=== PATIENT | female | born 1980 | race Caucasian/White ===

== ENCOUNTER 2020-08-02 00:11 | Inpatient (IN) | payer BC ==
[~2020-08-02] VITALS: Ht 172.7 cm; Wt 106.6 kg
--- NOTE | ~2020-08-02 | OR ---
[facility] [address] [place], [place] [address] Draft DATE OF OPERATION: 08/03/2020 SURGEON: Margaret Curtis DO PREOPERATIVE DIAGNOSES: 1. Intrauterine at 39 weeks and 5 days' gestation. 2. Non-reassuring heart tracing. 3. Failure to descend. 4. GBS positive. POSTOPERATIVE DIAGNOSES: 1. Intrauterine at 39 weeks and 5 days' gestation. 2. Non-reassuring heart tracing. 3. Failure to descend. 4. GBS positive. 5. Nuchal cord x2. PROCEDURES PERFORMED: Primary low transverse delivery. ANESTHESIA: Epidural. PROCESS MAINTENANCE TECHNICIAN: Francheska Brown DO ESTIMATED BLOOD LOSS: 800 mL. COMPLICATIONS: None. FINDINGS: Delivery of viable male , 7 pounds 7 ounces with Apgars of 8 and 9 in the NAVDEEP position with nuchal x2, tight. Normal uterus, tubes, and ovaries. The umbilical cord was also notable for minimal Jenkinjones jelly. INDICATIONS: Ms. Saucedo is a pleasant 40-year-old G1, P0, with intrauterine at 39 weeks and 5 days' gestation, who presented to Labor and Delivery for elective induction of PATIENT NAME: AMARILIS SAUCEDO OPERATIVE REPORT DATE OF : 80 REPORT #: [id number] PHYSICIAN: MARGARET CURTIS DO PCP: AB HAN MD REPORT IS CONFIDENTIAL AND NOT TO BE RELEASED WITHOUT AUTHORIZATION [facility] [address] [place], [place] [address] Draft labor. complicated by GBS positive status and advanced maternal age. She was ripened with Cytotec and artificial rupture of membranes was performed with GBS prophylaxis per protocol. IUPC and FSE were placed and the patient developed regular painful contractions and made adequate cervical change. The patient progressed to complete with some variable decelerations noted throughout labor. With pushing, these variable decelerations became more concerning. After approximately 1-1/2 hours of pushing, variable decelerations combined with minimal variability and tachycardia with minimal descent prompted recommendation for proceeding with primary low transverse delivery. Risks, benefits, and alternatives were discussed in detail with the patient. The patient understands and wishes to proceed with the procedure. TECHNIQUE: The patient was taken to the operating room. A time-out was performed to confirm correct patient and correct procedure. Epidural anesthetic had been previously placed by Anesthesia, was bolused and found to be adequate. The patient was prepped and draped in the supine position with a bump under the right hip and a Machuca catheter was inserted. The patient received Ancef 2 g preoperatively as well as azithromycin 500 mg. No heparin was indicated. ICPs were on and running. Once epidural was found to be adequate, a Pfannenstiel skin incision was made 2 cm above the pubic symphysis and carried down to the fascia. The fascia was nicked in the midline and fascial incision was extended bilaterally using Mari scissors. The fascia was grasped with Delilah's, elevated, and the underlying rectus divided sharply and bluntly. The rectus muscles were then divided in the midline and the peritoneum was entered sharply. Peritoneal incision was extended cephalad and caudad using blunt dissection. An Blaine self-retractor was placed and survey of the abdomen and pelvis was performed. Low station was appreciated. Hysterotomy was performed using a surgical scalpel and the hysterotomy was extended bilaterally using blunt dissection. The surgeon's hand was placed into the uterine cavity and the head easily flexed and delivered into the abdomen. Nuchal cord x2 tight was noted. The was then delivered easily with the assistance of fundal pressure and the nuchal cord was reduced. was vigorous and cried at delivery. Cord was doubly clamped and cut. The handed over to the awaiting pediatric team for further care. Cord gases were obtained and cord blood was obtained for routine analysis. The placenta was manually expressed intact with a centrally inserted 3-vessel cord. The umbilical cord was notable for minimal Jenkinjones jelly and the placenta was otherwise normal. The uterus was then cleared of any remaining products of conception or clot. Pitocin was given per protocol. Hysterotomy was then repaired using 0 Monocryl in a running locked manner. A 2nd imbricating suture of 0 Monocryl was applied with excellent imbrication noted. Small amount of oozing was noted from the left apex of the hysterotomy and this was made hemostatic with an O'Edgar stitch. The pelvis was irrigated and found to be hemostatic. The Blaine self-retractor was removed and ACell sheet was applied to the lower uterine segment. Tubes and ovaries PATIENT NAME: AMARILIS SAUCEDO OPERATIVE REPORT DATE OF : 80 REPORT #: [id number] PHYSICIAN: MARGARET CURTIS DO PCP: AB HAN MD REPORT IS CONFIDENTIAL AND NOT TO BE RELEASED WITHOUT AUTHORIZATION [facility] [address] [place], [place] [address] Draft had previously been noted to be normal. The peritoneum was then reapproximated using 2-0 Vicryl in a running nonlocked manner. The rectus was examined and found to be hemostatic with judicious use of Bovie electrocautery. Rectus was then reapproximated loosely using 0 Vicryl in three interrupted sutures. ACell powder was applied to the rectus sheath after it was irrigated and found to be hemostatic. The fascia was then reapproximated using 0 Vicryl in a running nonlocked manner. Subcu was examined and made hemostatic with judicious use of Bovie electrocautery. Subcu was repaired using 2-0 Vicryl in a running manner. Skin was then reapproximated using surgical mariano. The uterus was Crede'd for approximately 100 mL of blood. The patient was then taken to PACU in good and stable condition. Sponge, needle, and instrument counts were correct x2 at the end of the procedure. Dr. Brown was present and participated in all portions of the procedure. DO JUVE Shelby/NORMAN /[id number] Copies: ~ PATIENT NAME: AMARILIS SAUCEDO OPERATIVE REPORT DATE OF : 80 REPORT #: [id number] PHYSICIAN: MARGARET CURTIS DO PCP: AB HAN MD REPORT IS CONFIDENTIAL AND NOT TO BE RELEASED WITHOUT AUTHORIZATION
[~2020-08-02 00:11] MED LIST: MOTRIN IB200 MG PO; NORCO 5-325 TA1 EACH PO; SINGULAIR10 MG PO; SYNTHROID75 MCG PO
--- NOTE | 2020-08-02 00:38 | NUR ---
SWABBED BOTH NARES FOR RAPID COVID TEST
--- NOTE | 2020-08-02 11:32 | PR ---
[facility] [address] [place], [place] [address] Signed Progress Notes IP Datetime Report Generated by CPN: 08/02/2020 11:32 PROGRESS NOTES: [id number] Impression: Normal Progression of Labor; Reassuring Heart Rate Procedures: Sterile Vag Exam Plan: Continue Present Management Informed Consent Obtain: Induction of Labor VITAL SIGNS: [id number] EXAM: [id number] Dilatation: 1.0 Effacement: 50 Station: -3 Contractions: Irritability. Pt denies any discomfort or pain w/ ctxs MEMBRANES: [id number] Comments: Pt seen and examined. More uncomfortable w/ contractions. Cx now . Will recheck in _2 hrs and determine if AROM, cytotec, expectant management, or Cook cath. Pt understands and agrees. FETUS A: [id number] FHR Baseline: 120 Variability: Moderate 6-25bpm Accelerations: 15X15 Decelerations: None FHR Category: Category I Comments on Fetus A: No evidence of metabolic acidosis FETUS B: [id number] Signing Physician: Margaret Curtis DO Copies: ~ *Electronically Signed* 08/02/20 4403 MARGARET CURTIS DO PATIENT NAME: AMARILIS WILLINGHAM PROGRESS NOTE DATE OF : 80 PHYSICIAN: MARGARET CURTIS DO RPT #: [id number] REPORT IS CONFIDENTIAL AND NOT TO BE RELEASED WITHOUT AUTHORIZATION
--- NOTE | 2020-08-02 16:34 | PR ---
[facility] [address] [place], [place] [address] Signed Progress Notes IP Datetime Report Generated by CPN: 08/02/2020 16:34 PROGRESS NOTES: [id number] Impression: Normal Progression of Labor; Reassuring Heart Rate Procedures: Artificial ROM Plan: Continue Present Management Informed Consent Obtain: Vaginal Delivery VITAL SIGNS: [id number] EXAM: [id number] Dilatation: 1.5 Effacement: 50 Station: -3 Contractions: Irritability. Pt denies any discomfort or pain w/ ctxs MEMBRANES: [id number] Comments: Pt seen and examined. Slow change w/ cytotec induction and now angelita too frequently for additional prostaglandin. Discussed expectant management, AROM, or Cook cath and recommended AROM. Pt understands and agrees. Discussed anticipated course of labor. Epidural on demand. Continue PCN per protocol FETUS A: [id number] FHR Baseline: 120 Variability: Moderate 6-25bpm Accelerations: 15X15 Decelerations: None FHR Category: Category I Comments on Fetus A: No evidence of metabolic acidosis FETUS B: [id number] Signing Physician: Margaret Curtis DO Copies: ~ *Electronically Signed* 08/02/20 9511 MARGARET CURTIS DO PATIENT NAME: AMARILIS WILLINGHAM PROGRESS NOTE DATE OF : 80 PHYSICIAN: MARGARET CURTIS DO RPT #: [id number] REPORT IS CONFIDENTIAL AND NOT TO BE RELEASED WITHOUT AUTHORIZATION
--- NOTE | 2020-08-02 19:57 | PR ---
[facility] [address] [place], [place] [address] Signed Progress Notes IP Datetime Report Generated by FIDELIA: 08/02/2020 19:57 PROGRESS NOTES: [id number] Impression: Normal Progression of Labor; Reassuring Heart Rate Procedures: Intrauterine Pressure Catheter; Scalp Electrode; Sterile Vag Exam Plan: Continue Present Management Informed Consent Obtain: Vaginal Delivery VITAL SIGNS: [id number] EXAM: [id number] Dilatation: 1.5 Effacement: 75 Station: -3 Contractions: Irritability. Pt denies any discomfort or pain w/ ctxs MEMBRANES: [id number] Comments: Pt seen and examined. Comfortable w/ epidural. Some lightheadedness and mild shortness of breath w/ epidural that has resolved. Pt sitting up laughing and joking. Recommended IUPC and FSE to better evaluate progression of labor. IUPC and FSE placed w/out difficulty. Will monitor closely. Discussed anticipated course of labor and will proceed w/ expectant management. FETUS A: [id number] FHR Baseline: 120 Variability: Moderate 6-25bpm Accelerations: 15X15 Decelerations: None FHR Category: Category I Comments on Fetus A: No evidence of metabolic acidosis FETUS B: [id number] Signing Physician: Margaret Curtis DO Copies: ~ *Electronically Signed* 08/02/201956 MARGARET CURTIS DO PATIENT NAME: AMARILIS WILLINHGAM KEVIN PROGRESS NOTE DATE OF : 80 PHYSICIAN: MARGARET CURTIS DO RPT #: [id number] REPORT IS CONFIDENTIAL AND NOT TO BE RELEASED WITHOUT AUTHORIZATION
--- NOTE | 2020-08-02 23:27 | PR ---
[facility] [address] [place], [place] [address] Signed Progress Notes IP Datetime Report Generated by CPN: 08/02/2020 23:27 PROGRESS NOTES: [id number] Impression: Normal Progression of Labor; Reassuring Heart Rate Procedures: Sterile Vag Exam Plan: Continue Present Management Informed Consent Obtain: Vaginal Delivery VITAL SIGNS: [id number] EXAM: [id number] Dilatation: 4.0 Effacement: 95 Station: -3 Contractions: Irritability. Pt denies any discomfort or pain w/ ctxs MEMBRANES: [id number] Comments: evaluation: Variable and few late decelerations but resolved. Moderate variability and accelerations throughtout. Pt seen and examined. Doing well. Comfortable w/ contractions. Overall status reassuring and now Cat 1 w/ accelerations. Reviewed contractions and status as well as cervical change. Will continue expectant management. Continue maternal position changes to encourage descent. Reviewed indications for if needed. All questions answered and pt understands and agrees with plan of care. FETUS A: [id number] FHR Baseline: 120 Variability: Moderate 6-25bpm Accelerations: 15X15 Decelerations: None FHR Category: Category I Comments on Fetus A: No evidence of metabolic acidosis FETUS B: [id number] Signing Physician: Margaret Curtis DO Copies: ~ *Electronically Signed* 08/02/20 3784 MARGARET CURTIS DO PATIENT NAME: AMARILIS WILLINGHAM KEVIN PROGRESS NOTE DATE OF : 80 PHYSICIAN: MARGARET CURTIS DO RPT #: [id number] REPORT IS CONFIDENTIAL AND NOT TO BE RELEASED WITHOUT AUTHORIZATION
--- NOTE | 2020-08-03 01:09 | PR ---
[facility] [address] [place], [place] [address] Signed Progress Notes IP Datetime Report Generated by CPN: 08/03/2020 01:09 PROGRESS NOTES: [id number] Impression: Normal Progression of Labor; Reassuring Heart Rate Procedures: Sterile Vag Exam Plan: Continue Present Management; Anticipate Vaginal Delivery Informed Consent Obtain: Vaginal Delivery VITAL SIGNS: [id number] EXAM: [id number] Dilatation: 9.0 Effacement: 95 Station: -3 Contractions: Irritability. Pt denies any discomfort or pain w/ ctxs MEMBRANES: [id number] Comments: Pt seen and examined. More comfortable after epidural rebolused by anesthesia. Cx now 9cm. Overall reassuring FHT w/ moderate variability, accelerations, but variable decelerations noted. Will continue to monitor closely. Discussed anticipated course of labor. All questions answered FETUS A: [id number] FHR Baseline: 120 Variability: Moderate 6-25bpm Accelerations: 15X15 Decelerations: None FHR Category: Category I Comments on Fetus A: No evidence of metabolic acidosis FETUS B: [id number] Signing Physician: Margaret Curtis DO Copies: ~ *Electronically Signed* 08/03/20 0109 MARGARET CURTIS DO PATIENT NAME: AMARILIS WILLINGHAM PROGRESS NOTE DATE OF : 80 PHYSICIAN: MARGARET CURTIS DO RPT #: [id number] REPORT IS CONFIDENTIAL AND NOT TO BE RELEASED WITHOUT AUTHORIZATION
--- NOTE | 2020-08-03 02:23 | PR ---
[facility] [address] [place], [place] [address] Signed Progress Notes IP Datetime Report Generated by CPN: 08/03/2020 02:22 PROGRESS NOTES: [id number] Impression: Normal Progression of Labor; Reassuring Heart Rate Procedures: Sterile Vag Exam Plan: Anticipate Vaginal Delivery Informed Consent Obtain: Vaginal Delivery VITAL SIGNS: [id number] EXAM: [id number] Dilatation: 10.0 Effacement: 100 Station: -1 Contractions: Irritability. Pt denies any discomfort or pain w/ ctxs MEMBRANES: [id number] Comments: Pt seen and examined. Pushing well w/ contractions. Variable decelerations noted w/ contractions, w/ continued moderate variability. Slow progress made. Will continue to monitor descent and FHT closely. Anticipate but reviewed indications for . FETUS A: [id number] FHR Baseline: 120 Variability: Moderate 6-25bpm Accelerations: 15X15 Decelerations: None FHR Category: Category I Comments on Fetus A: No evidence of metabolic acidosis FETUS B: [id number] Signing Physician: Margaret Curtis DO Copies: ~ *Electronically Signed* 08/03/20 022 MARGARET CURTIS DO PATIENT NAME: AMARILIS WILLINGHAM PROGRESS NOTE DATE OF : 80 PHYSICIAN: MARGARET CURTIS DO RPT #: [id number] REPORT IS CONFIDENTIAL AND NOT TO BE RELEASED WITHOUT AUTHORIZATION
--- NOTE | 2020-08-03 03:13 | PR ---
[facility] [address] [place], [place] [address] Signed Progress Notes IP Datetime Report Generated by FIDELIA: 08/03/2020 03:13 PROGRESS NOTES: [id number] Impression: Arrest of Dilatation/Descent; Non-reassuring Heart Rate Procedures: Sterile Vag Exam Plan: Tocolysis; Deliver- Section Informed Consent Obtain: Section Delivery VITAL SIGNS: [id number] EXAM: [id number] Dilatation: 10.0 Effacement: 100 Station: -1 Contractions: Irritability. Pt denies any discomfort or pain w/ ctxs MEMBRANES: [id number] Comments: Pt w/ good pushing effort, slow descent, and intolerance of labor w/ continued variable decelerations. Multiple position changes and intrauterine rescussitation attempted. Terbutaline ordered. OR crew and Dr. Brown notified and en route. Consents signed. Ancef 2 g IV. Will move to OR. FETUS A: [id number] FHR Baseline: 120 Variability: Moderate 6-25bpm Accelerations: 15X15 Decelerations: None FHR Category: Category I Comments on Fetus A: No evidence of metabolic acidosis FETUS B: [id number] Signing Physician: Margaret Curtis DO Copies: ~ *Electronically Signed* 08/03/20 0313 MARGARET CURTIS DO PATIENT NAME: AMARILIS WILLINGHAM PROGRESS NOTE DATE OF : 80 PHYSICIAN: MARGARET CURTIS DO RPT #: [id number] REPORT IS CONFIDENTIAL AND NOT TO BE RELEASED WITHOUT AUTHORIZATION
--- NOTE | 2020-08-03 04:33 | NUR ---
08/03/20 0433 Carolyne Guevara 0424 PATIENT ARRIVES TO ROOM 102 AWAKE BUT DROWSY. RESP EVEN AND UNLABORED. DENIES PAIN OR NAUSEA. 0430 MOM BREAST FEEDING BABY TO RIGHT BREAST WITH FBC RN AT BEDSIDE.
--- NOTE | 2020-08-04 10:36 | PR ---
[facility] [address] [place], [place] [address] Signed PP Progress Notes Datetime Report Generated by CPN: 08/04/2020 10:36 SUBJECTIVE: [id number] Pain: Within Normal Limits Nausea/Vomiting: Denies Flatus: Yes Bowel Movement: No Vital Signs: [id number] Vital Signs: Reviewed; Within Normal Limits EXAM: Ongoing Cardiovascular: Normal Respiratory: Normal Abdomen/Uterus: Normal Lochia: Normal Vulva/Perineum: Not Done Breasts: Not Done CVA Tenderness: Normal Extremities: Normal Incision: Normal Progress: Normal Exam Comments: Fundus firm U-2 nontender IMPRESSION/PLAN/PROCEDURES: [id number] Impression: Normal Progression Plan: Continue Present Management Progress Notes: Pt seen and examined. Doing well. Ambulating, voiding, and tolerating full diet. Pain and lochia minimal. well. No lightheadedness or dizziness. No complaints. Anticipate d/c home tomorrow. Hgb 8.6 Signing Physician: Margaret Curtis DO Copies: ~ *Electronically Signed* 08/04/20 1036 MARGARET CURTIS DO PATIENT NAME: AMARILIS WILLINGHAM PROGRESS NOTE DATE OF : 80 PHYSICIAN: MARGARET CURTIS DO RPT #: [id number] REPORT IS CONFIDENTIAL AND NOT TO BE RELEASED WITHOUT AUTHORIZATION
--- NOTE | 2020-08-04 10:37 | PR ---
[facility] [address] [facility] [place], [place] [address] Signed PP Progress Notes Datetime Report Generated by CPN: 08/04/2020 10:37 SUBJECTIVE: [id number] Pain: Within Normal Limits Nausea/Vomiting: Denies Flatus: Yes Bowel Movement: No Vital Signs: [id number] Vital Signs: Reviewed; Within Normal Limits EXAM: Ongoing Cardiovascular: Normal Respiratory: Normal Abdomen/Uterus: Normal Lochia: Normal Vulva/Perineum: Not Done Breasts: Not Done CVA Tenderness: Normal Extremities: Normal Incision: Normal Progress: Normal Exam Comments: Fundus firm U-2 nontender IMPRESSION/PLAN/PROCEDURES: [id number] Impression: Normal Progression Plan: Continue Present Management Progress Notes: Pt seen and examined. Doing well. Ambulating, voiding, and tolerating full diet. Pain and lochia minimal. well. No lightheadedness or dizziness. No complaints. Anticipate d/c home tomorrow. Hgb 8.6 Signing Physician: Margaret Curtis DO Copies: ~ *Electronically Signed* 08/04/20 1037 MARGARET CURTIS DO PATIENT NAME: AMARILIS WILLINGHAM PROGRESS NOTE DATE OF : 80 PHYSICIAN: MARGARET CURTIS DO RPT #: [id number] REPORT IS CONFIDENTIAL AND NOT TO BE RELEASED WITHOUT AUTHORIZATION
--- NOTE | 2020-08-05 08:47 | PR ---
[facility] [address] [place], [place] [address] Signed PP Progress Notes Datetime Report Generated by CPN: 08/05/2020 08:47 SUBJECTIVE: [id number] Pain: Within Normal Limits Nausea/Vomiting: Denies Flatus: Yes Bowel Movement: No Vital Signs: [id number] Vital Signs: Reviewed; Within Normal Limits EXAM: Ongoing Cardiovascular: Normal Respiratory: Normal Abdomen/Uterus: Normal Lochia: Normal Vulva/Perineum: Not Done Breasts: Not Done CVA Tenderness: Normal Extremities: Normal Incision: Not Applicable Progress: Normal Exam Comments: Fundus firm U-2 nontender. Incision healing well IMPRESSION/PLAN/PROCEDURES: [id number] Impression: Normal Progression Plan: Remove Scandia; Discharge Progress Notes: Pt seen and examined. Doing well. Ambulating, voiding, and tolerating full diet. Pain and lochia minimal. well. No fevers/chills. No lightheadedness/dizziness. Will d/c home with ibuprofen, norco, and ferrous sulfate. Planning natural family planning. No other questions or concerns. Reviewed discharge instructions in detail. Signing Physician: Margaret Curtis DO Copies: ~ *Electronically Signed* 08/05/20 0800 MARGARET CURTIS DO PATIENT NAME: AMARILIS WILLINGHAM PROGRESS NOTE DATE OF : 80 PHYSICIAN: MARGARET CURTIS #: [id number] REPORT IS CONFIDENTIAL AND NOT TO BE RELEASED WITHOUT AUTHORIZATION
== END 2020-08-05 10:45 | disposition home or self-care (01) | DRG 787 ==
LOC: FBC 00:11
PROVIDERS: ADMIT Obstetrics & Gynecology; ATTEND Obstetrics & Gynecology
PROC: 3E0P7VZ Introduction of Hormone into Female Reproductive, Via Natural or Artificial Opening (ICD-10-PCS; 2020-08-02)
PROC: 10907ZC Drainage of Amniotic Fluid, Therapeutic from Products of Conception, Via Natural or Artificial Opening (ICD-10-PCS; 2020-08-02)
PROC: 10H07YZ Insertion of Other Device into Products of Conception, Via Natural or Artificial Opening (ICD-10-PCS; 2020-08-02)
PROC: 00HU33Z Insertion of Infusion Device into Spinal Canal, Percutaneous Approach (ICD-10-PCS; 2020-08-02)
PROC: 3E0R3BZ Introduction of Anesthetic Agent into Spinal Canal, Percutaneous Approach (ICD-10-PCS; 2020-08-02)
PROC: 10D00Z1 Extraction of Products of Conception, Low, Open Approach (ICD-10-PCS; principal; 2020-08-03 03:51)
PROC: 3E0234Z Introduction of Serum, Toxoid and Vaccine into Muscle, Percutaneous Approach (ICD-10-PCS; 2020-08-04)
DX: O32.4XX0 Maternal care for high head at term, not applicable or unspecified (principal); D62 Acute posthemorrhagic anemia; Z3A.39 39 weeks gestation of pregnancy; Z37.0 Single live birth; O76 Abnormality in fetal heart rate and rhythm complicating labor and delivery; O99.824 Streptococcus B carrier state complicating childbirth; O99.284 Endocrine, nutritional and metabolic diseases complicating childbirth; E03.9 Hypothyroidism, unspecified; Z20.822 Contact with and (suspected) exposure to COVID-19; O26.893 Other specified pregnancy related conditions, third trimester; O69.81X0 Labor and delivery complicated by cord around neck, without compression, not applicable or unspecified; O90.81 Anemia of the puerperium; O77.0 Labor and delivery complicated by meconium in amniotic fluid; O34.43 Maternal care for other abnormalities of cervix, third trimester; Z79.899 Other long term (current) drug therapy; Z67.21 Type B blood, Rh negative
CPT/HCPCS: 01960; 36415; 82803; 83030; 85027; 86850; 86870; 86900; 86901; C9803; J1650; J1885; J2001; J2274; J2405; J2540; J2590; J2790; J2795; J3010; J7121; U0003

== ENCOUNTER 2021-05-25 07:20 | Emergency (ER) | payer BC ==
[~2021-05-25] VITALS: Ht 172.7 cm; Wt 106.6 kg
== END 2021-05-25 07:57 | disposition home or self-care (01) ==
LOC: ED 07:20
DX: L30.9 Dermatitis, unspecified (principal); Z79.899 Other long term (current) drug therapy
CPT/HCPCS: 99282

== ENCOUNTER 2021-09-26 11:28 | Inpatient (IN) | payer BC ==
[~2021-09-26] VITALS: Ht 172.7 cm; Wt 118.8 kg
--- NOTE | ~2021-09-26 | OR ---
[facility] [address] [place], [place] [address] Draft DATE OF OPERATION: 10/03/2021 SURGEON: Margaret Curtis DO PREOPERATIVE DIAGNOSES: 1. Term . 2. History of prior . 3. Obesity in . 4. Rh negative. POSTOPERATIVE DIAGNOSES: 1. Term . 2. History of prior . 3. Obesity in . 4. Rh negative. PROCEDURE PERFORMED: Repeat low transverse delivery. ANESTHESIA: Spinal. EQUIPMENT WASHER: Trev Caputo MD ESTIMATED BLOOD LOSS: 700 mL. DRAINS: Machuca to gravity. COMPLICATIONS: None. FINDINGS: Delivered a viable female , 7 pounds 10 ounces with Apgars of 9 and 9 in the direct OP position. Nuchal cord x2 loose. Normal placenta, ovaries, and fallopian tubes. Significant varicosity of the lower uterine segment, otherwise normal-appearing uterus. PATIENT NAME: AMARILIS SAUCEDO OPERATIVE REPORT DATE OF : 80 REPORT #: [id number] PHYSICIAN: MARGARET CURTIS DO PCP: AB HAN MD REPORT IS CONFIDENTIAL AND NOT TO BE RELEASED WITHOUT AUTHORIZATION [facility] [address] [place], [place] [address] Draft INDICATIONS: Ms. Saucedo is a very pleasant 41-year-old G2, P1-0-0-1 with IUP at 39 and 0 weeks gestation, who presents for repeat low transverse delivery. Risks, benefits, and alternatives were discussed in detail with the patient. The patient understands and wished to proceed with the procedure. TECHNIQUE: The patient was taken to the operating room where time-out was performed to confirm correct patient and correct procedure. Spinal anesthesia was adequately established. The patient was prepped and draped in the supine position with a bump under her right hip. A Machuca catheter was inserted and the patient received Ancef 2 g preoperatively per SCIP protocol and no heparin was indicated. Once spinal anesthetic was noted to be adequate, a Pfannenstiel skin incision was made with a surgical scalpel, cutting through the prior Pfannenstiel scar. This was carried down to the fascia and the fascia was nicked in the midline. Fascial incision was extended bilaterally using curved Mari scissors. The fascia was grasped with Delilah's, elevated, and the underlying rectus muscle dissected bluntly and sharply. The rectus muscle was then divided in the midline using blunt and sharp dissection and the peritoneum was entered sharply. Peritoneal incision was extended cephalad caudad using blunt and sharp dissection. The lower uterine segment was identified and significant varicosities were noted. An Blaine self retractor was placed and hysterotomy was performed superior to the varicosities. Hysterotomy was extended bilaterally using blunt dissection and clear amniotic fluid was noted. The surgeon's hand was placed into the uterine cavity. The head elevated into the abdomen, delivered with the assistance of fundal pressure. Nuchal cord x2 loose was noted and reduced. The was delivered without difficulty and was vigorous and cried upon delivery. Cord was doubly clamped and cut and the handed to the waiting pediatric team for further care. Cord blood was obtained for routine analysis. The placenta was then manually expressed intact with a centrally inserted three-vessel cord. The uterine cavity was cleared of any remaining products of conception or clots. The uterus was then closed in two layers of O Monocryl, the 1st being a running locked layer and the 2nd being an imbricating layer in a vertical manner. Several areas of oozing were noted and these were made hemostatic with [id number] sutures with O Monocryl. The pelvis was irrigated and to be hemostatic. Normal tubes and ovaries were identified. The Blaine self retractor was removed and lower uterine segment again identified, and noted to be hemostatic. The peritoneum was then reapproximated using 2-0 Vicryl in a running nonlocked manner. Rectus was then made hemostatic with judicious use of Bovie electrocautery and was irrigated and again found to be hemostatic. Rectus was then plicated in the midline loosely using 0 Vicryl in interrupted sutures. The fascia was then reapproximated using 0 Vicryl in a running nonlocked manner. Subcu was irrigated and found to be hemostatic and was reapproximated using 3-0 Vicryl in a running nonlocked manner. Skin was reapproximated with surgical mariano. The uterus was Crede'd for scant amount of blood and the patient was taken to PATIENT NAME: AMARILIS SAUCEDO OPERATIVE REPORT DATE OF : 80 REPORT #: [id number] PHYSICIAN: MARGARET CURTIS DO PCP: AB HAN MD REPORT IS CONFIDENTIAL AND NOT TO BE RELEASED WITHOUT AUTHORIZATION [facility] [address] [place] [address] [place] [address] Draft PACU in good and stable condition. Sponge, needle, and instrument counts were correct x2 at the end of the procedure. Dr. Caputo was present and participated in all portions of the procedure. Margaret Curtis DO JDW/LOKESHL /[id number] Copies: ~ PATIENT NAME: AMARILIS SAUCEDO OPERATIVE REPORT DATE OF : 80 REPORT #: [id number] PHYSICIAN: MARGARET CURTIS DO PCP: AB HAN MD REPORT IS CONFIDENTIAL AND NOT TO BE RELEASED WITHOUT AUTHORIZATION
[2021-10-03] MEDS ORDERED: PRENATAL MULTI1 EAC5 PO (06:08)
[2021-10-03] MEDS ORDERED: IRON325 M1 PO (06:08)
--- NOTE | 2021-10-03 08:52 | NUR ---
10/03/21 0852 Sheets,Sophie 0831 PT ARRIVED TO [facility] ROOM WITH AND MOTHER AT BEDSIDE. VSS. PT DENIES PAIN AND NAUSEA. SPINAL LEVEL T-6 AND PT DENIES SOB. PT UNABLE TO MOVE LEGS AND SPINAL EDUCATION GIVEN. 0833 BABY TO CHEST WITH [facility] RN AT BEDSIDE, HOB INCREASED SLIGHTLY. 0850 PT RESTING IN BED WITH BABY ON CHEST. PT DENIES CONCERNS. VSS.
--- NOTE | 2021-10-04 12:50 | PR ---
[facility] [address] [facility] [place], [place] [address] Signed PP Progress Notes Datetime Report Generated by CPN: 10/04/2021 12:50 SUBJECTIVE: [id number] Pain: Within Normal Limits Nausea/Vomiting: Denies Flatus: Yes Bowel Movement: No Vital Signs: [id number] Vital Signs: Reviewed; Within Normal Limits EXAM: Ongoing Cardiovascular: Normal Respiratory: Normal Abdomen/Uterus: Normal Lochia: Normal Vulva/Perineum: Not Done CVA Tenderness: Normal Extremities: Normal Incision: Normal Progress: Normal Exam Comments: Fundus firm U-2 nontender incision healing well IMPRESSION/PLAN/PROCEDURES: [id number] Impression: Normal Progression Plan: Discharge Progress Notes: Pt seen and examined, doing well. Ambulating, voiding, and tolerating full diet. Pain and lochia minimal. well. No concerns. Desires d/c home today. Hgb 9.5. Reviewed discharge instructions in detail Signing Physician: Margaret Curtis DO Copies: ~ *Electronically Signed* 10/04/21 9238 MARGARET CURTIS DO PATIENT NAME: AMARILIS KEVIN PROGRESS NOTE DATE OF : 80 PHYSICIAN: MARGARET CURTIS DO RPT #: [id number] REPORT IS CONFIDENTIAL AND NOT TO BE RELEASED WITHOUT AUTHORIZATION
== END 2021-10-04 14:10 | disposition home or self-care (01) | DRG 787 ==
LOC: FBC 10-03 05:19
PROVIDERS: ADMIT Obstetrics & Gynecology; ATTEND Obstetrics & Gynecology
PROC: 10D00Z1 Extraction of Products of Conception, Low, Open Approach (ICD-10-PCS; principal; 2021-10-03 07:00)
PROC: 3E0334Z Introduction of Serum, Toxoid and Vaccine into Peripheral Vein, Percutaneous Approach (ICD-10-PCS; 2021-10-04)
DX: O34.211 Maternal care for low transverse scar from previous cesarean delivery (principal); D62 Acute posthemorrhagic anemia; Z3A.39 39 weeks gestation of pregnancy; Z37.0 Single live birth; O99.284 Endocrine, nutritional and metabolic diseases complicating childbirth; E03.8 Other specified hypothyroidism; O99.02 Anemia complicating childbirth; D64.9 Anemia, unspecified; O26.893 Other specified pregnancy related conditions, third trimester; Z67.21 Type B blood, Rh negative; O99.214 Obesity complicating childbirth; Z23 Encounter for immunization; O69.81X0 Labor and delivery complicated by cord around neck, without compression, not applicable or unspecified; Z79.899 Other long term (current) drug therapy
CPT/HCPCS: 36415; 83030; 85027; 86850; 86870; 86900; 86901; A9270; J0690; J1650; J1885; J2001; J2274; J2300; J2405; J2550; J2590; J2790; J7121

== ENCOUNTER 2023-11-20 09:08 | Emergency (ER) | payer BC ==
[~2023-11-20] VITALS: Ht 182.9 cm; Wt 87.7 kg
[~2023-11-20 09:08] MED LIST changes: +IRON325 M1 PO; +PRENATAL MULTI1 EAC5 PO
[2023-11-20] MEDS ORDERED: PHENTERMINE HCL30 MG PO (09:21)
[2023-11-20] MEDS ORDERED: IBUPROFEN 600 MG TAB PO ONE (10:15)
[2023-11-20] MEDS ORDERED: ACETAMINOPHEN 500 MG TAB PO ONE (10:15)
[2023-11-20] MEDS ORDERED: HYDROCODON-ACE1 EA11 PO (10:18)
[2023-11-20 10:47] VITALS: BP 125/76
== END 2023-11-20 10:45 | disposition home or self-care (01) ==
LOC: ED 09:08
DX: S62.305A Unspecified fracture of fourth metacarpal bone, left hand, initial encounter for closed fracture (principal); S62.307A Unspecified fracture of fifth metacarpal bone, left hand, initial encounter for closed fracture; W20.8XXA Other cause of strike by thrown, projected or falling object, initial encounter
CPT/HCPCS: 29125; 73110; 99283-25; A9270

== ENCOUNTER 2025-01-09 16:44 | Emergency (ER) | payer BC ==
[~2025-01-09] VITALS: Ht 182.9 cm; Wt 91.0 kg
[~2025-01-09 16:44] MED LIST changes: +HYDROCODON-ACE1 EA11 PO; +PHENTERMINE HCL30 MG PO
[2025-01-09] MEDS ORDERED: HYDROmorphone HCL 1 MG/ML SYR IV PRN ×2 (17:00→19:00)
[2025-01-09] MEDS ORDERED: SODIUM CHLORIDE 0.9% 1,000 ML IV ONE (17:00)
[2025-01-09 17:13] LABS: BASOPHILS 0.4 % (0.1-1.2); EOSINOPHILS 4.5 % (0.7-5.8); LYMPHOCYTES 23.6 % (19.3-51.7); MCH 30.1 PG (25.6-32.2); MCHC 35.2 g/dL (32.2-35.5); MCV 85.5 fL (79.4-94.8); MONOCYTES 6.4 % (4.7-12.5); NEUTROPHILS 64.8 % (34.0-71.1); RBC 4.22 M/uL (3.93-5.22)
[2025-01-09] MEDS ORDERED: ZEPBOUND5 MG/0.5 M SUB-Q (17:23)
[2025-01-09 17:29] LABS: ALT (SGPT) 17.0 U/L (14-59); AST (SGOT) 21.0 U/L (15-37); GLOMERULAR FILTRATION RATE,EST 57.0 mL/min (>60); PROTEIN, TOTAL 7.8 g/dL (6.4-8.2); UREA NITROGEN 12.0 mg/dL (7-18)
[2025-01-09 18:20] LABS: BLOOD/HGB, URINE NEGATIVE (Negative); KETONE, URINE NEGATIVE (Negative); LEUK ESTERASE, URINE NEGATIVE (negative); NITRITE, URINE NEGATIVE (negative)
[2025-01-09] MEDS ORDERED: ONDANSETRON ODT8 MG PO (18:57)
[2025-01-09] MEDS ORDERED: KETOROLAC TROMETHAMINE 30 MG/ML VIAL IV ONE (19:00)
[2025-01-09] MEDS ORDERED: HYDROCODONE BIT/ACETAMINOPHEN 5/325 MG 1 TAB HOME.PACK PO ONE (19:00)
[2025-01-09 19:22] VITALS: BP 125/88
== END 2025-01-09 19:47 | disposition home or self-care (01) ==
LOC: ED 16:44
PROVIDERS: Emergency Medicine
DX: K43.9 Ventral hernia without obstruction or gangrene (principal); Z79.899 Other long term (current) drug therapy; Z91.041 Radiographic dye allergy status
CPT/HCPCS: 36415; 74176; 80053; 81003; 83690; 84703; 85025; 96374; 96375; 99284-25; A9270; J1171; J1885; J2405; J7030

== ENCOUNTER 2025-01-15 23:21 | Emergency (ER) | payer BC ==
[~2025-01-15] VITALS: Ht 182.9 cm; Wt 91.0 kg
[~2025-01-15 23:21] MED LIST changes: +ONDANSETRON ODT8 MG PO; +ZEPBOUND5 MG/0.5 M SUB-Q
--- OUTSIDE RECORDS SUMMARY | 2025-01-15 23:28 | XMS ---
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 [place] VISIT COUNT (12 MO.) [address] TOTAL 3 NOTE: Visits indicate total known visits. 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
[2025-01-15 23:45] LABS: BASOPHILS 0.2 % (0.1-1.2); BLOOD/HGB, URINE NEGATIVE (Negative); EOSINOPHILS 2.9 % (0.7-5.8); KETONE, URINE NEGATIVE (Negative); LEUK ESTERASE, URINE NEGATIVE (negative); LYMPHOCYTES 13.3 % (19.3-51.7); MCH 30.1 PG (25.6-32.2); MCHC 34.6 g/dL (32.2-35.5); MCV 87.0 fL (79.4-94.8); MONOCYTES 6.8 % (4.7-12.5); NEUTROPHILS 76.5 % (34.0-71.1); NITRITE, URINE NEGATIVE (negative); RBC 4.15 M/uL (3.93-5.22)
[2025-01-16 00:02] LABS: ALT (SGPT) 18.0 U/L (14-59); AST (SGOT) 20.0 U/L (15-37); GLOMERULAR FILTRATION RATE,EST 85.0 mL/min (>60); PROTEIN, TOTAL 7.7 g/dL (6.4-8.2); UREA NITROGEN 13.0 mg/dL (7-18)
[2025-01-16] MEDS ORDERED: HYDROmorphone HCL 1 MG/ML SYR IV PRN (01:00)
[2025-01-16] MEDS ORDERED: HYDROCODON-ACE1 EA10 PO (01:58)
[2025-01-16 02:14] VITALS: BP 141/73
== END 2025-01-16 02:15 | disposition home or self-care (01) ==
LOC: ED 23:21
PROVIDERS: Emergency Medicine
DX: K43.9 Ventral hernia without obstruction or gangrene (principal); Z91.041 Radiographic dye allergy status; Z79.899 Other long term (current) drug therapy
CPT/HCPCS: 36415; 80053; 81003; 83690; 83735; 84703; 85025; 96374; 96375; 99284-25; J1171; J2405

== ENCOUNTER 2025-01-18 17:27 | Emergency (ER) | payer BC ==
[~2025-01-18] VITALS: Ht 182.9 cm; Wt 95.3 kg
[~2025-01-18 17:27] MED LIST changes: +HYDROCODON-ACE1 EA10 PO
--- OUTSIDE RECORDS SUMMARY | 2025-01-18 17:34 | XMS ---
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 [place] VISIT COUNT (12 MO.) [address] TOTAL 4 NOTE: Visits indicate total known visits. 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
[2025-01-18 18:28] LABS: BASOPHILS 0.1 % (0.1-1.2); EOSINOPHILS 3.1 % (0.7-5.8); LYMPHOCYTES 21.1 % (19.3-51.7); MCH 29.9 PG (25.6-32.2); MCHC 35.1 g/dL (32.2-35.5); MCV 85.2 fL (79.4-94.8); MONOCYTES 7.0 % (4.7-12.5); NEUTROPHILS 68.4 % (34.0-71.1); RBC 4.11 M/uL (3.93-5.22)
[2025-01-18 18:40] LABS: ALT (SGPT) 13 U/L (14-59); AST (SGOT) 14 U/L (15-37); GLOMERULAR FILTRATION RATE,EST 99 mL/min (>60); PROTEIN, TOTAL 7.4 g/dL (6.4-8.2); UREA NITROGEN 19 mg/dL (7-18)
[2025-01-18] MEDS ORDERED: METOPROLOL SUCCINATE 25 MG TABCR PO ONE (19:30)
[2025-01-18] MEDS ORDERED: METOPROLOL TART25 MG PO (19:33)
[2025-01-18 19:58] VITALS: BP 121/85
--- NOTE | 2025-01-19 18:26 | EKG ---
[facility] [address] [facility] [place] [address] Signed Normal sinus rhythm with sinus arrhythmia Normal ECG No previous ECGs available Confirmed by Win Tobin DO ([id number]) on 01/19/2025 6:26:12 PM Electronically Signed By: WIN TOBIN DO 01/19/25 182 PATIENT NAME: AMARILIS STAFFORD KEVIN Electrocardiogram DATE OF : 80 PHYSICIAN: WIN TOBIN DO REPORT #: [id number] REPORT IS CONFIDENTIAL AND NOT TO BE RELEASED WITHOUT AUTHORIZATION
== END 2025-01-18 19:58 | disposition home or self-care (01) ==
LOC: ED 17:27
PROVIDERS: Emergency Medicine
DX: R00.2 Palpitations (principal); R07.89 Other chest pain; R06.00 Dyspnea, unspecified; Z91.041 Radiographic dye allergy status; Z79.899 Other long term (current) drug therapy
CPT/HCPCS: 36415; 80053; 83735; 84443; 84484; 85025; 93005; 93010; 93242; 93244; 99285

== ENCOUNTER 2025-04-12 10:31 | Day surgery (SDC) | payer BC ==
[~2025-04-12] VITALS: Ht 172.7 cm; Wt 91.0 kg
[~2025-04-12 10:31] MED LIST changes: +CEFAZOLIN SODIUM 2 GM in SODIUM CHLORIDE 0.9% 100 ML IV SCH; +CEFAZOLIN SODIUM 2 GM/20 ML SYR IV SCH; +IBLOOD GLUCOSE TEST STRIP 1 EA TEST VI PRN; +LACTATED RINGER'S 1,000 ML IV SCH; +LEVOTHYROXINE25 MC1 PO; +LIDOCAINE HCL 1% 5 ML SDV INJ ONE; +METOPROLOL TART25 MG PO; +VENTOLIN HFA18 GM INH
[2025-04-12 11:16] VITALS: BP 130/75
[2025-04-12 11:23] LABS: BASOPHILS 0.3 % (0.1-1.2); EOSINOPHILS 6.1 % (0.7-5.8); LYMPHOCYTES 21.5 % (19.3-51.7); MCH 31.0 PG (25.6-32.2); MCHC 35.3 g/dL (32.2-35.5); MCV 87.8 fL (79.4-94.8); MONOCYTES 7.6 % (4.7-12.5); NEUTROPHILS 64.2 % (34.0-71.1); RBC 3.84 M/uL (3.93-5.22)
[2025-04-12 11:34] LABS: GLOMERULAR FILTRATION RATE,EST 106.0 mL/min (>60); UREA NITROGEN 14.0 mg/dL (7-18)
[2025-04-12] MEDS ORDERED: LIDOCAINE 1% W/ EPI 1:100,000 20 ML MDV ONE (12:12)
[2025-04-12] MEDS ORDERED: fentaNYL citrate 100 MCG/2 ML VIAL ONE ×2 (13:25→13:52)
[2025-04-12] MEDS ORDERED: ROCURONIUM BROMIDE 50 MG/5 ML SYR ONE (13:25)
[2025-04-12] MEDS ORDERED: LIDOCAINE HCL 2% 5 ML SDV ONE (13:25)
[2025-04-12] MEDS ORDERED: ACETAMINOPHEN 1,000 MG/100 ML VIAL ONE (13:31)
[2025-04-12] MEDS ORDERED: KETOROLAC TROMETHAMINE 30 MG/ML VIAL ONE (13:35)
[2025-04-12] MEDS ORDERED: DEXAMETHASONE SOD PHOS 4 MG/ML VIAL ONE ×2 (13:35→13:41)
[2025-04-12] MEDS ORDERED: MAGNESIUM SULFATE 1 GM/2 ML VIAL ONE (13:51)
[2025-04-12] MEDS ORDERED: SUGAMMADEX SODIUM 200 MG/2 ML ML ONE (14:15)
[2025-04-12] MEDS ORDERED: SEVOFLURANE 250 ML BTL INH ONE (14:23)
[2025-04-12] MEDS ORDERED: IBLOOD GLUCOSE TEST STRIP 1 EA TEST VI PRN (14:45)
[2025-04-12] MEDS ORDERED: NALOXONE HCL 0.4 MG SYR IV PRN (14:45)
[2025-04-12] MEDS ORDERED: fentaNYL citrate 50 MCG/ML SDV IV PRN (14:45)
--- NOTE | 2025-04-12 14:58 | NUR ---
04/12/25 145 Bertha Mackay 1444- PT PRESENTS TO PACU, SEMI PEREZ POSITION, NON REACTIVE TO STIMULUS. OPA IN PLACE, BREATHING EVEN AND NON LABORED, O2 AT 6L PER MASK. ABD SOFT, NON DISTENDED, ABD BINDER IN PLACE. LR INFUSING TO RFA IV. ALL MONITORS IN PLACE. 4946- CONTINUE TO MONITOR, PT REMAINS NON REACTIVE AT THIS TIME.
[2025-04-12 15:27] VITALS: BP 116/69
--- NOTE | 2025-04-12 15:39 | NUR ---
1525-PT BACK TO ROOM FROM PACU ON . RECEIVED REPORT FROM BEN HOLMAN. PT IS AWAWK. RESP EVEN AND UNLABORED. PT RATES PAIN 4/10. DENIES NAUSEA. PT HAS ABDOMINAL BINDER IN PLACE. PT TAKING SIPS OF WATER. CRACKERS PROVIDED. NO OTHER NEEDS AT THIS TIME. CALL LIGHT WITHIN REACH.
[2025-04-12] MEDS ORDERED: HYDROCODONE/ACETA 5/325 TAB PO PRN (15:45)
[2025-04-12 16:29] VITALS: BP 123/69
--- NOTE | 2025-04-12 16:43 | NUR ---
LE 1536-VO PER DR. BENITEZ FOR NORCO 1 Q 4 HOURS. ORDER PLACED IN COMPUTER. LE 1554-CALLED PHARMACY FOR MEDICATION. LE 1605-MEDICATION ORVERRIDE. LE 1606-PT NOW RATES PAIN 5-11/01. PAIN MEDICAITON GIVEN PER E[facility].
--- NOTE | 2025-04-12 16:49 | NUR ---
1629-PT IS LAYING IN BED AWAKE. RESP EVEN AND UNLABORED. RATES PAIN /. DENIES NAUSEA. PT DRINKING WATER. 1632-PT UP TO RESTROOM. GAIT STEADY AND TOLERATED WELL. PT STATES INCREASE IN PAIN WITH AMBULATION. PT ABLE TO VOID. LE 1635-PT BACK TO ROOM, PT WOULD LIKE MORE TIME AFTER BEING UP. PT DRINKING WATER. NO OTHER NEEDS AT THIS TIME. CALL LIGHT WITHIN REACH.
[2025-04-12] MEDS ORDERED: OXYCODONE/APAP 5/325 TAB PO ONE (17:15)
[2025-04-12 17:26] VITALS: BP 144/85
--- NOTE | 2025-04-12 17:31 | NUR ---
5648-PHONE CALL TO DR. LEIGH FOR PERCOCET 1 NOW.
--- NOTE | 2025-04-12 17:32 | NUR ---
1720-PAIN MEDICATION GIVEN PER EMAR. PT RATES PAIN 6/10 WHEN UP WALKING, 1722-PT AMBULATES TO RESTROOM. 1725-PT BACK TO ROOM AND LAYING IN BED. RESP EVEN AND UNLABORED. RATES PAIN 4/10 WHEN SITTING AND 6/10 WHEN UP WALKING. PT DRINKING WATER. WENT TO PHARMACY TO DROP OF RX. NO OTHER NEEDS AT THIS TIME. CALL LIGHT WITHIN REACH.
--- NOTE | 2025-04-12 18:04 | NUR ---
1745-PT FEELING BETTER AND WOULD LIKE TO GO HOME. PT WILL GET DRESSED WTIH IN ROOM. 1755-WENT OVER DISCHARGE INSTRUCTIONS WITH PT AND HER . WENT OVER POSTOP MEDICATIONS. ALL QUESTIONS ANSWERED. 1800-RIDE PROVIDED TO FRONT OF HOSPITAL. PT RATES PAIN A 3/10.
== END 2025-04-12 18:00 | disposition home or self-care (01) ==
LOC: OPS 10:31 → DS 10:31 → OPS 12:15
PROVIDERS: ATTEND Surgery
PROC: 0WUF0JZ Supplement Abdominal Wall with Synthetic Substitute, Open Approach (ICD-10-PCS; principal; 2025-04-12 12:15)
DX: K43.6 Other and unspecified ventral hernia with obstruction, without gangrene (principal); Z87.891 Personal history of nicotine dependence
CPT/HCPCS: 00750; 36415; 80048; 84703; 85025; C1781; J0131; J0688; J1100; J1885; J2003; J2405; J2704; J3010; J3475; J3490